=== PATIENT | male | born 1990 | race Caucasian/White ===

== ENCOUNTER 2017-11-18 06:33 | Emergency (ER) | payer MEDICAID ==
[~2017-11-18] VITALS: Ht 175.3 cm; Wt 68.2 kg
[2017-11-18] MEDS ORDERED: PENICILLIN V POTASSIUM 500 MG TABLET PO ONE (08:00)
[2017-11-18] MEDS ORDERED: HYDROCODONE/ACETAMINOPHEN 5-325 MG TABLET PO ONE (08:00)
[2017-11-18] MEDS ORDERED: NALOXONE HCL 1 MG/ML 2 ML SYG ONE (10:08)
[2017-11-18] MEDS ORDERED: FLUMAZENIL 0.1 MG/ML 5 ML VIAL IVP ONE (10:08)
[2017-11-18] MEDS ORDERED: FentaNYL CITRATE-PF 100 MCG/2 ML VIAL IVP ONE (10:15)
[2017-11-18] MEDS ORDERED: MIDAZOLAM HCL 5 MG/ML VIAL IVP ONE (10:15)
[2017-11-18 11:45] VITALS: BP 120/59
== END 2017-11-18 12:15 | disposition home or self-care (01) ==
LOC: EMS 06:35
DX: S03.01XA Dislocation of jaw, right side, initial encounter (principal); L08.9 Local infection of the skin and subcutaneous tissue, unspecified; K12.2 Cellulitis and abscess of mouth; F12.90 Cannabis use, unspecified, uncomplicated; X58.XXXA Exposure to other specified factors, initial encounter; Y93.89 Activity, other specified; Y92.89 Other specified places as the place of occurrence of the external cause; Y99.8 Other external cause status
CPT/HCPCS: 21480; 96374; 96375; 99152; 99153; 99285; J2250; J3010; J2310; J3490